=== PATIENT | female | born 1990 | race Caucasian/White ===

== ENCOUNTER 2023-04-02 02:27 | Inpatient (IN) | payer MEDICAID ==
[~2023-04-02] VITALS: Ht 162.6 cm; Wt 55.8 kg
[2023-04-02] MEDS ORDERED: haloperidol lactate 5mg/ml inj IM ONE (03:00)
[2023-04-02] MEDS ORDERED: diphenhydrAMINE 50 mg/ml inj IM ONE (03:00)
[2023-04-05 20:20] VITALS: BP 146/91; PULSE 91; RESP 18; TEMP 97.7; O2SAT 99
[2023-04-05] MEDS ORDERED: acetaminophen 325mg tablet PO PRN (21:20)
[2023-04-05] MEDS ORDERED: mag hydrox/Alum hydrox/simeth 30ml oral suspension PO PRN (21:20)
[2023-04-05] MEDS ORDERED: magnesium hydroxide 30ml (MOM) UD suspension PO PRN (21:20)
[2023-04-05] MEDS ORDERED: loperamide 2mg capsule PO PRN (21:20)
[2023-04-05] MEDS ORDERED: QUET100T34 PO (21:55)
[2023-04-05] MEDS ORDERED: ALBU18HF2 PO (21:55)
[2023-04-05] MEDS ORDERED: BUPR300T86 PO (21:55)
[2023-04-05 22:17] VITALS: RESP 18; O2SAT 97
[2023-04-05] MEDS ORDERED: albuterol 2.5 MG/3 ML nebule NEB PRN (22:55)
[2023-04-05] MEDS ORDERED: FLUT1DIS20 INH (23:08)
[2023-04-05] MEDS ORDERED: MONT-47 PO (23:08)
[2023-04-05] MEDS ORDERED: ONDA4TAB12 PO (23:08)
[2023-04-05] MEDS ORDERED: traZODone 50mg tablet PO PRN (23:10)
[2023-04-05] MEDS: NICOTINE POLACRILEX 2 MG LOZENGE BC PRN (23:29)
[2023-04-05] MEDS: buPROPion SR 150mg tablet PO SCH (23:29)
[2023-04-05] MEDS: quetiapine 100mg tablet PO SCH (23:29)
[2023-04-06] MEDS ORDERED: ondansetron 4mg rapidly disintigrating tab PO PRN (00:15)
[2023-04-06 07:00] VITALS: RESP 18; O2SAT 100
[2023-04-06 08:00] VITALS: BP 137/90; PULSE 80; RESP 18; TEMP 98.1; O2SAT 100
[2023-04-06] MEDS ORDERED: albuterol 2.5 MG/3 ML nebule NEB SCH (08:00)
[2023-04-06] MEDS ORDERED: budesonide 0.5mg/2ml UD nebule IH SCH (08:00)
[2023-04-06 08:17] LABS: CHOL/HDL RATIO 2.7 (0.00-4.99); CHOLESTEROL 153 MG/DL (0-200); HDL CHOLESTEROL 57 MG/DL (35-60); LDL CHOLESTEROL 81 MG/DL (50-100); TRIGLYCERIDES 65 MG/DL (20-135)
[2023-04-06 08:58] LABS: HEMOGLOBIN A1C 5.3 % (4.5-6.2)
[2023-04-06] MEDS: albuterol 2.5 MG/3 ML nebule NEB SCH ×3 (09:00→20:58)
[2023-04-06] MEDS: budesonide 0.5mg/2ml UD nebule IH SCH ×2 (09:00→20:58)
[2023-04-06] MEDS: buPROPion SR 150mg tablet PO SCH ×2 (09:06→19:55)
[2023-04-06] MEDS: montelukast 10mg tablet PO SCH (09:06)
[2023-04-06] MEDS: nicotine 21mg patch - 24 hr TD SCH ×2 (09:07→10:06)
[2023-04-06] MEDS: NICOTINE POLACRILEX 2 MG LOZENGE BC PRN ×5 (09:12→19:56)
[2023-04-06] MEDS: acetaminophen 325mg tablet PO PRN ×2 (10:16→16:15)
[2023-04-06] MEDS ORDERED: SUMAtriptan 25 MG tablet PO ONE (19:10)
[2023-04-06 19:15] VITALS: RESP 18; O2SAT 100
[2023-04-06 19:44] VITALS: BP 146/80; PULSE 82; RESP 18; TEMP 98.5; O2SAT 100
[2023-04-06] MEDS: quetiapine 100mg tablet PO SCH (19:55)
[2023-04-06 20:54] VITALS: PULSE 91; RESP 16; O2SAT 98
[2023-04-07 07:00] VITALS: RESP 16; O2SAT 100
[2023-04-07 07:02] LABS: BASOPHILS % (AUTO) 0.4 % (0-1); EOSINOPHILS # (AUTO) 0.3 X10'3 (0-0.9); EOSINOPHILS % (AUTO) 3.6 % (0-6); HEMATOCRIT 36.3 % (35.0-45.0); HEMOGLOBIN 11.9 g/dl (12.0-16.0); LYMPHOCYTES % (AUTO) 36.1 % (21-51); MEAN CORPUSCULAR HEMOGLOBIN 30.7 PG (27.0-31.0); MEAN CORPUSCULAR HGB CONC 32.9 g/dL (33.0-36.5); MEAN CORPUSCULAR VOLUME 93.5 FL (78-98); MEAN PLATELET VOLUME 7.6 FL (7.4-10.4); MONOCYTES # (AUTO) 0.8 X10'3 (0-0.9); MONOCYTES % (AUTO) 9.8 % (2-12); NEUTROPHILS # (AUTO) 4.1 X10'3 (1.8-7.7); NEUTROPHILS % (AUTO) 50.1 % (42-75); PLATELET COUNT 280 X10'3 (140-440); RED BLOOD COUNT 3.89 X10'6 (4.20-5.60); RED CELL DISTRIBUTION WIDTH 14.5 % (11.5-14.5); WHITE BLOOD COUNT 8.3 X10'3 (4.5-11.0)
[2023-04-07 07:49] LABS: ALANINE AMINOTRANSFERASE 38 U/L (12-78); ALBUMIN 3.2 G/DL (3.4-5.0); ALBUMIN/GLOBULIN RATIO 0.8 (1.1-1.5); ALKALINE PHOSPHATASE 75 IU/L (46-116); ANION GAP 7 (8-16); ASPARTATE AMINO TRANSFERASE 26 U/L (10-37); BILIRUBIN,TOTAL 0.2 MG/DL (0.1-1.0); BLOOD UREA NITROGEN 13 MG/DL (7-18); BUN/CREATININE RATIO 18.6 (10.0-20.0); CALCIUM 8.8 MG/DL (8.5-10.1); CHLORIDE 105 MMOL/L (99-107); GLUCOSE 103 MG/DL (70-104); SODIUM 142 MMOL/L (135-145); TOTAL CARBON DIOXIDE 29.6 MMOL/L (24-32); TOTAL PROTEIN 7.3 G/DL (6.4-8.2); eCRCL 99 ML/MIN; eGFR > 90 ML/MIN
[2023-04-07 07:50] LABS: POTASSIUM 4.8 MMOL/L (3.5-5.1)
[2023-04-07 08:00] VITALS: BP 149/99; PULSE 79; RESP 16; TEMP 98; O2SAT 100
[2023-04-07] MEDS: nicotine 21mg patch - 24 hr TD SCH (08:00)
[2023-04-07] MEDS ORDERED: atomoxetine 40 MG capsule PO ONE (08:10)
[2023-04-07] MEDS: montelukast 10mg tablet PO SCH (08:11)
[2023-04-07] MEDS: buPROPion SR 150mg tablet PO SCH ×2 (08:11→20:24)
[2023-04-07] MEDS: budesonide 0.5mg/2ml UD nebule IH SCH ×2 (08:20→19:54)
[2023-04-07] MEDS: NICOTINE POLACRILEX 2 MG LOZENGE BC PRN ×4 (08:21→20:27)
[2023-04-07] MEDS: albuterol 2.5 MG/3 ML nebule NEB SCH ×2 (15:00→19:54)
[2023-04-07 19:00] VITALS: RESP 16; O2SAT 97
[2023-04-07 19:54] VITALS: PULSE 79; RESP 16; O2SAT 100
[2023-04-07 20:00] VITALS: BP 119/80; PULSE 104; RESP 16; TEMP 98.5; O2SAT 97
[2023-04-07] MEDS: quetiapine 100mg tablet PO SCH (20:24)
[2023-04-08] MEDS: NICOTINE POLACRILEX 2 MG LOZENGE BC PRN ×6 (03:38→21:45)
[2023-04-08 07:00] VITALS: RESP 14; O2SAT 96
[2023-04-08 08:00] VITALS: BP 133/85; PULSE 99; RESP 14; TEMP 98.5; O2SAT 96
[2023-04-08] MEDS ORDERED: ATOMOXETINE 25 MG PO SCH (08:00)
[2023-04-08] MEDS: nicotine 21mg patch - 24 hr TD SCH (08:00)
[2023-04-08] MEDS ORDERED: atomoxetine 40 MG capsule PO SCH (08:00)
[2023-04-08] MEDS: buPROPion SR 150mg tablet PO SCH ×2 (08:16→21:45)
[2023-04-08] MEDS: montelukast 10mg tablet PO SCH (08:16)
[2023-04-08] MEDS: atomoxetine 25mg capsule PO SCH (09:56)
[2023-04-08] MEDS: atomoxetine 40 MG capsule PO SCH (09:56)
[2023-04-08] MEDS: albuterol 2.5 MG/3 ML nebule NEB SCH ×3 (10:14→21:00)
[2023-04-08] MEDS: budesonide 0.5mg/2ml UD nebule IH SCH ×2 (10:15→21:00)
[2023-04-08 19:00] VITALS: RESP 20; O2SAT 96
[2023-04-08 20:00] VITALS: BP 138/92; PULSE 100; RESP 20; TEMP 98.8; O2SAT 96
[2023-04-08 20:37] VITALS: PULSE 105; RESP 16; O2SAT 100
[2023-04-08] MEDS: quetiapine 100mg tablet PO SCH (21:45)
[2023-04-09 07:00] VITALS: RESP 16; O2SAT 96
[2023-04-09] MEDS: NICOTINE POLACRILEX 2 MG LOZENGE BC PRN ×4 (07:21→15:23)
[2023-04-09 08:00] VITALS: BP 138/84; PULSE 80; RESP 16; TEMP 98.3; O2SAT 96
[2023-04-09] MEDS: montelukast 10mg tablet PO SCH (08:04)
[2023-04-09] MEDS: atomoxetine 25mg capsule PO SCH (08:04)
[2023-04-09] MEDS: atomoxetine 40 MG capsule PO SCH (08:04)
[2023-04-09] MEDS: buPROPion SR 150mg tablet PO SCH (08:04)
[2023-04-09] MEDS: acetaminophen 325mg tablet PO PRN (08:14)
[2023-04-09 09:09] VITALS: PULSE 104; RESP 16; O2SAT 100
[2023-04-09] MEDS: albuterol 2.5 MG/3 ML nebule NEB SCH ×2 (09:09→15:00)
[2023-04-09] MEDS: budesonide 0.5mg/2ml UD nebule IH SCH (09:09)
[2023-04-09] MEDS ORDERED: NICO-907 BC (16:44)
[2023-04-09] MEDS ORDERED: ALBU18HF2 PO (16:44)
[2023-04-09] MEDS ORDERED: TRAZ-251 PO (16:44)
[2023-04-09] MEDS ORDERED: ATOM60CA4 PO (16:44)
[2023-04-09] MEDS ORDERED: QUET100T34 PO (16:44)
[2023-04-09] MEDS ORDERED: BUPR300T86 PO (16:44)
[2023-04-09] MEDS ORDERED: MONT-40 PO (16:44)
[2023-04-09] MEDS ORDERED: FLUT1DIS20 INH (16:44)
== END 2023-04-09 17:36 | disposition home or self-care (01) | DRG 751 ==
LOC: ER 02:29 → ADULT MH 04-05 20:52
PROVIDERS: ADMIT Psychiatry & Neurology Psychiatry; ATTEND Psychiatry & Neurology Psychiatry
PROC: GZHZZZZ Group Psychotherapy (ICD-10-PCS; principal; 2023-04-05)
PROC: GZ51ZZZ Individual Psychotherapy, Behavioral (ICD-10-PCS; 2023-04-05)
DX: F33.2 Major depressive disorder, recurrent severe without psychotic features (principal); R45.851 Suicidal ideations; F14.21 Cocaine dependence, in remission; F15.20 Other stimulant dependence, uncomplicated; F41.9 Anxiety disorder, unspecified; F90.2 Attention-deficit hyperactivity disorder, combined type; G43.909 Migraine, unspecified, not intractable, without status migrainosus; J45.909 Unspecified asthma, uncomplicated; M79.7 Fibromyalgia; Z59.00 Homelessness unspecified; Z82.0 Family history of epilepsy and other diseases of the nervous system; Z82.3 Family history of stroke; Z83.3 Family history of diabetes mellitus; Z79.899 Other long term (current) drug therapy
CPT/HCPCS: 36415; 71045; 80053; 80061; 83036; 85025; 87081; 94760; 99283